=== PATIENT | female | born 1950 | race Caucasian/White ===

== ENCOUNTER → 2016-12-01 | Outpatient (CLI) | payer MEDICARE, MEDICAID ==
[~2016-12-01] MED LIST: FAMOTIDINE 20MG20 MG PO; HYDROCHLOROTHIA25 M1 PO; LEVOTHYROXINE0.1 MG PO; LISINOPRIL 10MG10 MG PO; MEDROL 4MG. DOSE4 MG PO; MELOXICAM7.5 MG PO; METOPROLOL SUCC25 M1 PO; PRAVASTATIN20 MG PO
--- NOTE | 2016-12-01 15:18 | RADIOLOGY REPORT PS360 ---
BONE DENSITOMETRY(HIP:LT SPINE HISTORY: POST MENOPAUSAL COMPARISON: None FINDINGS: The BMD measured at the left femoral neck is 1.00 to g/cm squared with a T score of -0.3. This is considered normal according to the World Health Organization criteria. Fracture risk is low. Recommend follow-up exam November 2018. IMPRESSION: Normal bone density
--- NOTE | 2016-12-03 08:18 | RADIOLOGY REPORT PS360 ---
DIG MAMM-SCREEN SOFIA W/CAD CAD Screening COMPARISON: Digital mammograms 08/18/2014 and 05/29/2012 INDICATION: There is a history of breast cancer patient's mother and sister TECHNIQUE: Standard CC and MLO images were obtained. R2 CAD reviewed. FINDINGS: Scattered fibroglandular densities are seen throughout both breast unchanged from previous exams. There is a mole marker left breast. There are a few tiny benign-appearing nodular densities in each breast as noted previously. There is no suspicious lesion and there are no suspicious microcalcifications. IMPRESSION: Fibrofatty parenchyma with no suspicious lesion seen recommend yearly follow-up BI-RADS CATEGORY: 2_Benign RECOMMENDED FOLLOWUP: 12M 12 MONTH FOLLOW-UP (A letter has been sent to the patient regarding results of the study.)
== END ==
LOC: RAD 11-22 09:30
DX: Z12.31 Encounter for screening mammogram for malignant neoplasm of breast (principal); Z78.0 Asymptomatic menopausal state
CPT/HCPCS: G0202